=== PATIENT | female | born 1955 | race Asian ===

== ENCOUNTER 2023-10-21 13:44 | Emergency (ER) | payer SELFPAY ==
[2023-10-21 13:48] VITALS: BP 152/86
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
[2023-10-21 17:43] VITALS: BP 148/79
== END 2023-10-21 18:18 | disposition home or self-care (01) ==
LOC: EMR 13:44
PROVIDERS: EMERGENCY PHYSICIAN Emergency Medicine
DX: R51.9 Headache, unspecified (principal); S16.1XXA Strain of muscle, fascia and tendon at neck level, initial encounter; M54.9 Dorsalgia, unspecified; V43.52XA Car driver injured in collision with other type car in traffic accident, initial encounter; Y92.410 Unspecified street and highway as the place of occurrence of the external cause; M54.2 Cervicalgia; M54.50 Low back pain, unspecified; I10 Essential (primary) hypertension; E78.00 Pure hypercholesterolemia, unspecified
CPT/HCPCS: 99284; 70450; 72072; 72110; 72125